=== PATIENT | female | born 1965 | race Caucasian/White ===

== ENCOUNTER 2018-12-02 08:45 | Day surgery (SDC) | payer MEDICARE, OTHER ==
[~2018-12-02] VITALS: Ht 182.9 cm; Wt 119.3 kg
[~2018-12-02 08:45] MED LIST: ACTOS15 MG PO; AMLODIPINE BESY10 MG PO; ARIPIPRAZOLE10 MG PO; BUPROPION XL300 MG PO; CEFDINIR300 MG PO; CLINDAMYCIN HC300 MG PO; DESVENLAFAXINE25 MG PO; GABAPENTIN300 MG PO; HUMALOG100 UNIT/1 SUB-Q; JANUVIA100 MG PO; LAMOTRIGINE100 MG PO; LAMOTRIGINE200 MG PO; LANTUS100 UNITS/ SUB-Q; LATUDA40 MG PO; LISINOPRIL30 MG PO; LUNESTA3 MG PO; LYRICA150 MG PO; METFORMIN HCL1000 MG PO; NAPROXEN500 MG PO; NORCO 5-325 TA1 EACH PO; NORTRIPTYLINE H50 MG PO; NOVOLOG100 UNIT/2 SUB-Q; OMEPRAZOLE20 MG PO; VENLAFAXINE HC150 MG PO; VICTOZA 2-0.6 MG/0.1 SUB-Q; ZOLPIDEM TARTRA10 MG PO; ZYPREXA5 MG PO
--- NOTE | 2018-12-02 14:35 | NUR ---
12/02/18 1435 Sheets,Nemo 1426 PT ARRIVED TO PACU ON 6L VIA MASK, PT NONAROUSABLE TO PAINFUL STIMULI AND ORAL AIRWAY IN PLACE. RESP EVEN AND UNLABORED. 1427 O2 INCREASED TO 10L VIA MASK PER FERMENTATION MANAGER. 1435 CBG 202. PT REMAINS NONAROUSABLE.
--- NOTE | 2018-12-02 15:26 | NUR ---
PT ARRIVES TO DS RM 4 FROM PACU AWAKE AND ALERT, RESP EVEN AND UNLABORED. PT REMAINS ON 2L O2 VIA NC, SATS ABOVE 94% WITH CONT PULSE OXIMETER LEFT IN PLACE. PT DENIES PAIN OR NAUSEA. PT PROVIDED COFFEE PER REQUEST. FAMILY AT BEDSIDE. CALL LIGHT WITHIN REACH.
--- NOTE | 2018-12-02 15:39 | NUR ---
1535: NC REMOVED, PT ENCOURAGED TO CONT TO CDB. PT PROVIDED SECOND CUP OF COFFEE WITH CREAMER AND ICED WATER. PT AGREES TO USE CALL LIGHT WITH ANY NEEDS. SPOUSE CONT AT BEDSIDE.
[2018-12-02] MEDS ORDERED: PERCOCET 5-3251 EACH PO (15:51)
--- NOTE | 2018-12-02 16:16 | NUR ---
PT TOLERATES PO WITH NO C/O NAUSEA. PT STATES "I AM STARTING TO FEEL URGE TO VOID" AND WILL NOTIFY RN WHEN SHE WOULD LIKE TO GET UP AND USE BATHROOM. PT RESTING IN BED WATCHING TV WITH FAMILY AT BEDSIDE.
--- NOTE | 2018-12-02 19:08 | NUR ---
[id number]: PT USES CALL LIGHT TO NOTIFY RN OF URGE TO VOID. PT SITS AT SIDE OF BED PRIOR TO STANDING, DENIES NAUSEA OR DIZZINESS. PT AMBULATES WITH RN ASSIST TO BATHROOM. PT VOIDS APPROXIMATELY 50 MLS BRIGHT RED URINE WITH CLOTS PRESENT. PT DENIES ANY PAIN WITH URINATION BUT IS UPSET WITH SMALL AMOUNT VOIDED. PT BACK TO BED AND BLADDER SCANNED. PT HAS RESIDUAL OF APPROX 833 MLS IN BLADDER. [id number]: DR. MARTÍNEZ NOTIFIED. VERBAL ORDERS RECEIVED TO INSERT HARRIS CATHETER AND REPORT BACK TO MD WITH OUTPUT. THIS RN AND JAMES ALTMAN RN ATTEMPT TO PLACE HARRIS CATH. PT BECOMES NAUSEATED WITH HOB SLIGHTLY LOWERED AND VOMITS APPROX 75 MLS YELLOW VOMITUS. PT PROVIDED WET TOWELS AND NEW GOWN, ROOM CLEANED. PT GIVEN PAIN MEDICATION MD; SEE EMAR. [id number]: RICARDO LITTLE RN AND SYL KWAN RN ATTEMPT TO PLACE SECOND HARRIS CATH ONCE PT IS NO LONGER NAUSEATED. HARRIS INSERTION UNSUCCESSFUL. DR. MARTÍNEZ NOTIFIED AND STATES SHE WILL COME TO DS UNIT TO ASSESS. [id number]: DR. MARTÍNEZ IN DS UNIT AND PLACES 18 ROMANIAN HARRIS CATH WITH ALYX SHANNON RN AND THIS RN ASSIST. PT TOLERATES HARRIS CATH INSERTION WELL. BLADDER IMMEDIATELY EMPTIED OF APPROX [address] MARTÍNEZ GIVES VERBAL ORDERS FOR PT TO KEEP HARRIS CATH UNTIL Sunday12/04/18 AND THEN TO RETURN TO HER CLINIC FOR FOLLOW UP. PT AND SPOUSE PROVIDED HARRIS CATH EDUCATION, ALL QUESTIONS ADDRESSED. PT DRESSES SLEF WITH SPOUSE IN ROOM. 1840: DC INSTRUCTIONS PRESENTED TO PT AND SPOUSE AND PAIN PRESCRIPTION GIVEN TO PT SPOUSE. 1700: PT DC'S FROM DS RM 4 VIA WITH SPOUSE AND ALYX SHANNON RN TO HOME. SPOUSE
--- NOTE | 2018-12-04 14:33 | OR ---
[facility] [address] [place] [id number] Signed DATE OF OPERATION: 12/02/2018 SURGEON: Kimberly Martínez MD PREOPERATIVE DIAGNOSIS: Severe stress urinary incontinence. POSTOPERATIVE DIAGNOSES: 1. Severe stress urinary incontinence. 2. Mild vaginal atrophy. PROCEDURES PERFORMED: 1. Diagnostic cystoscopy. 2. Insertion of an Obtryx transobturator tape (TOT) mid urethral sling. PRIMARY SURGEON: Kimberly Martínez MD. SOFTWARE REVERSE ENGINEER SURGEON: OANH Crocker MD. ANESTHESIA: General. ESTIMATED BLOOD LOSS: 75 mL. COMPLICATIONS: None. SPECIMENS: None. DRAINS: A 16-South African Nguyen catheter, connected to gravity drainage. INDICATIONS FOR PROCEDURE: Ms. Rockwell is a very pleasant 53-year-old female, who presented to my clinic earlier in the year with complaints of severe leakage with coughing, sneezing, and exertional movements. She underwent diagnostic cystoscopy, which revealed a normal bladder with no Electronically Signed By: KIMBERLY MARTÍNEZ MD 12/04/18 1433 PATIENT NAME: CHINO ROCKWELL OPERATIVE REPORT DATE OF : 63 REPORT #: [id number] PHYSICIAN: KIMBERLY MARTÍNEZ MD PCP: TAWANNA FIERRO MD REPORT IS CONFIDENTIAL AND NOT TO BE RELEASED WITHOUT AUTHORIZATION [facility] [address] [place] [id number] Signed evidence of any anatomic abnormality. The patient was also noted to have no significant pelvic organ prolapse on exam at that time. She denied any history of overactive bladder symptoms, nor any issues with recurrent UTIs. The only thing on initial workup that was found was that she does have a relatively large bladder capacity of approximately 650 mL. After a thorough discussion of the risks and benefits of placement of a midurethral sling, the patient elected to pursue insertion of a Obtryx TOT sling for definitive management of her stress urinary incontinence symptoms. I have made it very clear to her at that time of the inherent risk of pain with intercourse as well as reactive overactive bladder symptoms, i.e. urgency and frequency symptoms for long as potentially 10 years beyond placement of the sling. She verbalized understanding of this today and is willing to accept the risk of the procedure. OPERATIVE FINDINGS: 1. Visual inspection of the external genitalia reveals no obvious evidence of pelvic organ prolapse. The labia minora and majora are within normal limits. She has a somewhat short vaginal length, along with the presence of mild vaginal atrophy that is mostly consistent with her age. There are no overt abnormalities associated with her urethra or bladder neck. 2. The TOT sling was passed through the obturator fossa bilaterally, perforating the obturator membrane on both sides. She experienced a mild amount of bleeding during this event. After the tape was placed in the usual fashion, diagnostic cystoscopy was performed, which revealed no evidence of any iatrogenic damage to the bladder or urethra. The bilateral ureteral orifices were noted to be effluxing clear urine on both sides at the end of the procedure. 3. The TOT tape was ultimately tightened with the help of a right angle under the loop of the sling. Ultimately, the sling was in excellent position at the end of tensioning and just prior to closure of the vaginal wall epithelium. DESCRIPTION OF PROCEDURE: After informed consent was obtained, the patient was taken back to the operating room. She was transferred from the [facility] to the operating room table, where general anesthesia was induced. She was placed in the dorsal lithotomy position and genitalia prepped and draped in standard sterile fashion. A 16-South African Nguyen catheter was inserted into the patient's bladder and her bladder was completely drained of urine. The catheter was then placed towards the head of the patient. A Ajit retractor was then placed over the operative area and hooks were placed at the introitus, at the level of the labia for use and retraction of the structures. The patient's inner thighs were marked at the appropriate level just medial to the adductor longus muscle on both sides. Once the catheter was then placed, an Allis clamp was placed approximately 1 cm below the urethral meatus and another Allis was placed at the level of the bladder neck. Approximately, 10 mL of 0.25% Marcaine with epinephrine were then injected into the anterior vaginal wall to assist in hydrodissection of the plane between the urethra and Electronically Signed By: KIMBERLY MARTÍNEZ MD 12/04/18 1433 PATIENT NAME: CHINO ROCKWELL OPERATIVE REPORT DATE OF : 63 REPORT #: [id number] PHYSICIAN: KIMBERLY MARTÍNEZ MD PCP: TAWANNA FIERRO MD REPORT IS CONFIDENTIAL AND NOT TO BE RELEASED WITHOUT AUTHORIZATION [address] [address] Signed the vaginal wall. An approximately 3 cm vertical incision was then made into the anterior vaginal wall at the level of the urethra down to the level just proximal to the bladder neck. This incision was dissected down via Metzenbaum scissors bilaterally to the level of the obturator membrane. Dissection was performed without any difficulty. Once the periurethral space was adequately dissected to the level of the obturator membrane on both sides, two stab incisions were made just medial to the adductor longus muscle, also level with the patient's urethra using an 11 blade. Each trocar was then passed from the outside in first through the incision and then through the obturator fossa, popping through the obturator membrane on both sides. The tip of the trocar was then visualized within the incision on both sides. I took care to avoid buttonholing the vaginal epithelium during this process. The sling was then hooked to the end of each trocar and then pulled again from the inside back out again, leaving the ends of the TOT sling projecting from the bilateral groin incisions. I assured adequate placement of the sling and made sure that it was sitting properly into the urethra. Once the sling was confirmed to be in adequate position, the procedure was paused in order to perform a diagnostic cystourethroscopy. Please see above findings. The catheter was then reinserted and the patient's bladder was drained again. We then focused on positioning/tensioning of the sling. I placed a right angle under the loop of the midportion of sling and tensioned the sling with the right angle in place. The plastic covering the arms of the sling were then removed on both sides, along with the trocars attached to the plastic. We tensioned the sling slightly more than usual given the patient's severity of her incontinence. However, the sling was not placed in such a way as it was causing any indention to the periurethral tissue. Once I believed the sling was in good position, the periurethral area was then irrigated thoroughly and FloSeal was placed into the lateral periurethral space on both sides to assist with hemostasis. The final position of the sling was tension free, as confirmed by my regulatory affairs assistant, Dr. OANH Crocker. The stab incisions were then closed using Dermabond on both sides. The anterior vaginal wall incision was then closed in a continuous running fashion using 3-0 Vicryl. The patient's vagina was then irrigated again and vaginal packing impregnated with AVC cream was then inserted into the vagina. The catheter by this time was back in place and draining clear yellow urine. Of note, repeat cystoscopy was performed at the end of the procedure, which did confirm the presence of adequate efflux of urine from both ureteral orifices. The patient's vaginal area was then cleaned and dried and a Nguyen catheter was left to gravity drainage. The procedure was then terminated. The patient tolerated the procedure well without any complication. She will now be transferred to the postanesthesia care unit in stable condition. NOTE: Dr. OANH Crocker was present throughout the entire procedure and did assist with the boyle component of the surgery, including dissection as well as passage and tensioning of the TOT sling. Electronically Signed By: KIMBERLY MARTÍNEZ MD 12/04/18 1433 PATIENT NAME: CHINO ROCKWELL OPERATIVE REPORT DATE OF : 63 REPORT #: [id number] PHYSICIAN: KIMBERLY MARTÍNEZ MD PCP: TAWANNA FIERRO MD REPORT IS CONFIDENTIAL AND NOT TO BE RELEASED WITHOUT AUTHORIZATION [address] [address] Signed DISPOSITION: I discussed the details of today's procedure with the patient's family and I answered all their questions. I made it clear to them that the goal of the surgery is to improve the severity of her incontinence and that she would likely not be completely 100% dry after this procedure. I explained to her that the more tension placed on a potential sling, the more risks for reactive OAB symptoms and/or urinary retention. I recommended to the patient's family that she avoid any heavy physical activity or heavy exertion including heavy lifting or housework for at least six weeks. She will be sent home today with Percocet 5/325, dispense #30 as needed for pain along with Keflex 500 mg p.o. t.i.d. for a total of 7 days. She will be scheduled return to clinic in 3 days to undergo her first voiding trial. The patient's vaginal packing will be removed prior to discharge today. MD JOLYNN Feldman/LOIS /[id number] Copies: ~ Electronically Signed By: KIMBERLY MARTÍNEZ MD 12/04/18 1433 PATIENT NAME: CHINO ROCKWELL OPERATIVE REPORT DATE OF : 63 REPORT #: [id number] PHYSICIAN: KIMBERLY MARTÍNEZ MD PCP: ATWANNA FIERRO MD REPORT IS CONFIDENTIAL AND NOT TO BE RELEASED WITHOUT AUTHORIZATION
== END 2018-12-02 19:10 | disposition home or self-care (01) ==
LOC: DS 08:45
PROVIDERS: Urology
PROC: 0TSD4ZZ Reposition Urethra, Percutaneous Endoscopic Approach (ICD-10-PCS; principal; 2018-12-02 10:30)
DX: N39.3 Stress incontinence (female) (male) (principal); N95.2 Postmenopausal atrophic vaginitis; E11.42 Type 2 diabetes mellitus with diabetic polyneuropathy; I10 Essential (primary) hypertension; E78.5 Hyperlipidemia, unspecified; K21.9 Gastro-esophageal reflux disease without esophagitis; M25.511 Pain in right shoulder; G89.29 Other chronic pain; F31.81 Bipolar II disorder; E66.9 Obesity, unspecified; F41.9 Anxiety disorder, unspecified; Z88.8 Allergy status to other drugs, medicaments and biological substances; Z68.35 Body mass index [BMI] 35.0-35.9, adult; N36.41 Hypermobility of urethra; Z79.899 Other long term (current) drug therapy; Z79.84 Long term (current) use of oral hypoglycemic drugs; Z87.891 Personal history of nicotine dependence
CPT/HCPCS: 00860; C1771; J0690; J0696; J1100; J1170; J1885; J2370; J2405; J2704; J3010; J7120

== ENCOUNTER 2021-05-17 11:21 | Inpatient (IN) | payer MEDICARE, MEDICAID ==
[~2021-05-17] VITALS: Ht 180.3 cm; Wt 116.0 kg
[~2021-05-17 11:21] MED LIST changes: +LAMICTAL150 MG PO; -LAMOTRIGINE100 MG PO; +PERCOCET 5-3251 EACH PO
--- OUTSIDE RECORDS SUMMARY | 2021-05-17 11:24 | XMS ---
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 [facility] VISIT COUNT (12 MO.) Syd Stoddard TOTAL 1 NOTE: Visits indicate total known visits. ED/UCC VISIT TRACKING (12 MO.) 05/17/2021 11:[address] [facility] [facility] OR TYPE: Emergency COMPLAINT: - CONFUSION, FALLING, WEAKNESS, KIDNEY FUNCTION INPATIENT VISIT TRACKING (12 MO.) No inpatient visits to display in this time frame [email or web address]
[2021-05-17] MEDS ORDERED: NORTRIPTYLINE H75 MG PO (11:53)
[2021-05-17] MEDS ORDERED: LISINOPRIL-HCT1 EACH PO (11:54)
[2021-05-17] MEDS ORDERED: JARDIANCE25 MG PO (11:54)
[2021-05-17] MEDS ORDERED: VRAYLAR6 MG PO (11:55)
[2021-05-17] MEDS ORDERED: BENZTROPINE MESY2 MG PO ×2 (11:56→17:13)
[2021-05-17] MEDS ORDERED: PIOGLITAZONE HC15 MG PO (11:56)
[2021-05-17] MEDS ORDERED: PREGABALIN150 MG PO (11:57)
[2021-05-17] MEDS ORDERED: LAMOTRIGINE150 MG PO (11:57)
[2021-05-17] MEDS ORDERED: METFORMIN HCL500 M1 PO (11:58)
[2021-05-17] MEDS ORDERED: FENOFIBRATE48 MG PO (11:58)
[2021-05-17] MEDS ORDERED: ALPRAZOLAM1 MG PO (11:58)
[2021-05-17] MEDS ORDERED: TOUJEO SOL300 UNIT/1 SUB-Q (11:59)
[2021-05-17] MEDS ORDERED: OZEMPIC1 MG/0.71 SQ (11:59)
[2021-05-17] MEDS ORDERED: NOVOLOG FL100 UNIT/1 SUB-Q (11:59)
[2021-05-17] MEDS ORDERED: QUETIAPINE FUM300 MG PO (11:59)
[2021-05-17] MEDS ORDERED: FOLIC ACID1 MG PO (12:00)
[2021-05-17] MEDS ORDERED: ROPINIROLE HC0.25 MG PO (12:00)
[2021-05-17] MEDS ORDERED: FEROSUL325 MG PO (12:00)
[2021-05-17] MEDS ORDERED: ATORVASTATIN CA80 MG PO (12:01)
--- NOTE | 2021-05-17 17:37 | NUR ---
Patient's medications reconciled using pharmacy records, patient's home medication list, visual inspection of RX vials and family interview. Two med discrepancies to note: she takes lamotrigine 150mg qam and 200mg qhs, she takes pregabalin 300mg qam. Family is unsure of insulin aspart dosing
--- NOTE | 2021-05-17 17:46 | NUR ---
cbg 134
--- NOTE | 2021-05-17 19:53 | NUR ---
RECEIVED REPORT FROM DAY SHIFT RN. PATIENT IS RESTING IN BED WATCHING TV. PATIENT DENIES ANY NEEDS. CALL LIGHT IN REACH.
--- NOTE | 2021-05-17 20:50 | NUR ---
PATIENT ASSESMENT COMPLETED. VITALS TAKEN AND RECORDED. PATIENTS INTAKE AND OUTPUT RECORDED. PATIENT REPORTS 2/10 PAIN AND DENIES THE NEED FOR PAIN MEDICATION AT THIS TIME. PATIENTS BS IS WNL. SCHEDULED MEDICATIONS GIVEN PER ORDER. IV INFUSING PER ORDER. PATIENTS FOOD HEATED UP AND CUT UP FOR PATIENT. PATIENT PROVIDED WITH FRESH ICE WATER. PATIENT REPOSITIONED IN BED. PATIENT DENIES ANY FURTHER NEEDS. CALL LIGHT IN REACH. BED ALARM ON FOR SAFETY.
--- NOTE | 2021-05-17 22:28 | NUR ---
PATIENT IS RESTING IN BED WITH EYES CLOSED, RR 17. CALL LIGHT IN REACH. BED ALARM ON FOR SAFETY. IVINFUSING PER ORDER.
--- NOTE | 2021-05-18 00:19 | NUR ---
PATIENT REPORTS 5/10 PAIN, PRN TYLENOL GIVEN PER ORDER. PATIENT REPOSITIONED IN BED. NO FURTHER NEEDS NOTED. IV INFUSING PER ORDER. BED ALARM ON FOR SAFETY.
--- NOTE | 2021-05-18 02:13 | NUR ---
PATIENTS VITALS TAKEN AND RECORDED. PATIENTS IV INFUSING PER ORDER. PATIENT DENIES ANY NEEDS. CALL LIGHT IN REACH.
--- NOTE | 2021-05-18 04:13 | NUR ---
PATIENT IS RESTING IN BED WITH EYES CLSOED, RR 16. CALL LIGHT IN REACH. BED ALARM ON FOR SAFETY.
--- NOTE | 2021-05-18 06:17 | NUR ---
PATIENT ASSISTED TO THE RESTROOM A 1PA W/FWW. PATIENT WAS ABLE TO VOID. PATIENT IS BACK IN BED RESTING. PATIENTS VITALS TAKEN AND RECORDED. INTKAE AND OUTPUT RECORDED. LAB PRESENT IN THE ROOM. PATIENT PROVIDED WITH FRESH ICE WATER. NO FURTHER NEEDS NOTED. CALL LIGHT IN REACH. BED ALARM ON FOR SAFETY.
--- NOTE | 2021-05-18 07:25 | NUR ---
PT AWAKE, WATCHING TV, NO C/O ORAL PAIN AT THIS TIIME. IVF INFUSING W/O PROBLEMS. BED ALARM ON
--- NOTE | 2021-05-18 09:09 | NUR ---
CBG 143 - REPOSITIONED IN BED. UP TO BR 1PA/FWW, VOIDED, BACK TO BED, TOLERATED WELL. REPOSITIONED IN BED FOR BREAKFAST. COFFEE GIVEN ON REQUEST. COOP WITH ASSESSMENT. TOOK MEDS W/O PROBLEMS. USES CALL LIGHT, BED ALARM ON FOR FALL PRECAUTIONS.
--- NOTE | 2021-05-18 10:02 | NUR ---
PATIENT AWAKE IN BED, VITALS CHARTED. ICE PACK PROVIDED FOR ORAL COMFORT. CALL IGHT IN EASY REACH
--- NOTE | 2021-05-18 10:04 | NUR ---
PATIENT REPORTS NOT BEING ABLE TO HAVE BM, REQUESTED A SUPPOSITORY, NIO ORDER ENTERED.
--- NOTE | 2021-05-18 11:30 | NUR ---
Spoke with pt and she states she is feeling ok. She has very short term memory. Family has been attempting to get pt into a SNF. She asks I call her daughter, Samantha for further information. Pt uses a walker. Mouth is sore as she had all her teeth pulled last week.
--- NOTE | 2021-05-18 12:04 | NUR ---
CBG 164, RECEIVED 3 UNITS HUMALOG SS - C/O ORAL PAIN. REMOVAL OF UPPER L TEETCH SOMETIME LAST WEEK, ICE PACK NOT EFFECTIVE GIVEN EARLIER. ORAGEL APPLIED, PARTIALLY EFFECTIVE. IVF DECREAED TO 65. CM IN ROOM. PT UP IN CHAIR. ALERT AND ORIENTED. DENIES NEED FOR TYLENOL SINCE SHE GOT ORAGEL
--- NOTE | 2021-05-18 13:00 | NUR ---
PATIENT SITTING UP IN CHAIR, VISITOR IN ROOM. VITALS AND I&OS CHARTED. CALL LIGHT IN EASY REACH
--- NOTE | 2021-05-18 14:00 | NUR ---
Spoke with Samantha. 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 Pt has been declining has worsening memory loss over the last 6 months. Pt is unable to care for self. 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 Received call from Orville at [facility] and they will accept this pt on Sunday to their SNF. Dr. Ortez updated.
--- NOTE | 2021-05-18 14:08 | NUR ---
medicated with Tylenol and oral gel to L upper gum line per 7/10 oral pain. more coffee given, visiting with family. chair alarm on
--- NOTE | 2021-05-18 15:37 | NUR ---
Pt worked with PT. back to chair, legs elevted, chair alarm in place. IVF infusing, no c/o oral pain at this time. watching tv.
--- NOTE | 2021-05-18 17:15 | NUR ---
cbg 134, no coverage needed, up to br, voided large amount of urine, 1PA/FWW back to chair, eating dinner
--- NOTE | 2021-05-18 17:33 | NUR ---
rocephin 2gr given as ordered, no c/o adverse reaction. was medicated with Oragel per L upper gum/teeth removal area. Up inc hair, eating.
--- NOTE | 2021-05-18 18:20 | NUR ---
Pt A&Ox4, CM and Dr Ortez in with pt earlier. new order for Rocephin 2GR. Oragel applied three time to L upper gum area/teeth removal area and Tylenol per oral pain, partially effective. Up to chair all this shift. has walked with PT, and to BR several times, voiding QS. eating well, CBG requiring 3 units Humolog for breakfast and lunch, last CBG 134. concerned about home med and hosp med dosages. Has required much emotional support off and on this shift. family visited nad she feels better. talked to CM about Physical Therapy vs SNF/rehab placement. IVF infusing w/o problems. has tolerated fluids well. no bm this shift
--- NOTE | 2021-05-18 19:42 | NUR ---
RECEIVED REPORT FROM DAY SHIFT RN. PATIENT IS RESTING IN BED. NO NEEDS NOTED. CALL LIGHT IN REACH.
--- NOTE | 2021-05-18 21:30 | NUR ---
IN RM WITH RN TO GET VS, PT UP TO THE TOILET SBA WITH WALKER, RN IN TO RESUME CARES AND GET PT BACK TO BED
--- NOTE | 2021-05-18 21:57 | NUR ---
PATIENT ASSISTED TO THE RESTROOM A SBA W/FWW, PATIENT LOLI TO VOID. PATIENT IS BACK IN BED RESTING. IV INFUSING PER ORDER. VITALS TAKEN AND RECORDED. INTAKE AND OUTPUT RECORDED. SCHEDULED MEDICATION GIVEN PER ORDER. PATIENT RATES PAIN AT A 7/10 IN HER MOUTH, PRN TYLENOL GIVEN PER ORDER. PRN ANXIETY MEDICATION GIVEN PER ORDER FOR PATIENT REPORTS OF ANXIOUS. PATIENT PROVIDED WITH FRESH ICE WATER. PATIENT DENIES ANY FURTHER NEEDS. CALL LIGHT IN REACH. BED ALARM ON FOR SAFETY.
--- NOTE | 2021-05-18 22:39 | NUR ---
PATIENT IS RESTING IN BED WITH EYES CLSOED, RR 17. CALL LIGHT IN REACH. BED ALARM ON FOR SAFETY. CALL LIGHT IN REACH.
--- NOTE | 2021-05-19 00:22 | NUR ---
PATIENT ASSISTED TO THE RESTROOM A SBA W/FWW. PATIENT ABLE TO VOID. PATIENT IS BACK IN BED RESTING. IV INFUSING PER ORDER. PATIENT RATES PAIN AT A 3/10 AND DENIES THE NEED FOR INTERVENTION AT THIS TIME. PATIENT DENIES ANY FURTHER NEEDS. PATIENT RORIENTED SHE CONFUSED THIS RN WITH THE PHYSICAL THERAPIST AND THOUGHT IT WAS NOON. PATIENTS CALL LIGHT IN REACH. BED ALARM ON FOR SAFETY.
--- NOTE | 2021-05-19 02:28 | NUR ---
PATIENT IS RESTING IN BED WITH EYES CLOSED, RR 18. CALL LIGHT IN REACH. BED ALARM ON FOR SAFETY.
--- NOTE | 2021-05-19 04:46 | NUR ---
PATIENT IS RESTING IN BED WITH EYES CLSOED, RR 16. CALL LIGHT IN REACH.
--- NOTE | 2021-05-19 06:02 | NUR ---
PATIENT ASSISTED TO THE RECLINER. PATIENTS BEDDING CHANGED. VITALS TAKEN AND RECORDED. INTAKE AND OUTPUT RECORDED. PATIENTS SCHEDULED MEDICATIONS GIVEN PER ORDER. PATIENT IS RESTING IN RECLINER. WARM BLANKET PROVIDED. IV INFUSING PER ORDER. CALL LIGHT AND BELONGINGS ARE WITHIN REACH.
--- NOTE | 2021-05-19 08:45 | NUR ---
REPORT RECEIVED FROM NIGHT RN AND PT. CARE RESUMED. PT. IS ALERT AND ORIENTED TO ALL. IV WNL AND FLUSHES WELL. PT. AMBULATED WITH SBA FROM THE BED TO THE CHAIR. SHE C/O GUM PAIN AND ADMIN. ORAJEL. DISCUSSED POC, SAFETY AND MEDS. LEFT RESTING WITH CALL LIGHT IN REACH.
--- NOTE | 2021-05-19 10:20 | NUR ---
Spoke with Alicia and updated she has been accepted by [facility]. She states she just spoke with her daughter, Samantha. She states she is not going to a SNF. States she will discuss with her daughter when she gets here today.
--- NOTE | 2021-05-19 18:12 | NUR ---
PT. REQUESTED TO RE-TIME REQUIP FROM 1800 TO 1999 TO ASSIST WITH SLEEPING. PHARMACY CALLED AND RETIMED MED.
--- NOTE | 2021-05-19 20:01 | NUR ---
IN ROOM TO ASSIST PT FROM CHAIR BACK TO BED AND GET HER A NEW GOWN. CLEANED UP PT'S TRAY. SHE DENIES FURTHER NEEDS. CALL LIGHT IS CLOSE.
--- NOTE | 2021-05-20 07:31 | NUR ---
REPORT RECEIVED FROM NIGHT RN AND PT. CARE RESUMED.
--- NOTE | 2021-05-20 10:28 | NUR ---
Marv walked to bathroom then sat in chair for brekfast
--- NOTE | 2021-05-20 11:25 | NUR ---
PT. IS ALERT AND ORIENTED TO ALL, BUT FORGETFUL IN CONVERSATION. VITALS STABLE. IV SITE WNL AND FLUSHES. ASSESSMENT COMPLETED AND MEDS. ADMINISTERED. DISCUSSED POC, SAFETY AND MEDS. LEFT RESTING WITH CALL LIGHT IN REACH.
[2021-05-20] MEDS ORDERED: CEFPODOXIME PR200 MG PO (11:49)
[2021-05-20] MEDS ORDERED: ALPRAZOLAM1 MG PO (11:52)
[2021-05-20] MEDS ORDERED: ACETAMINOPHEN500 MG PO (11:53)
[2021-05-20] MEDS ORDERED: ORAL ANALGESIC9 GM MM (11:53)
[2021-05-20] MEDS ORDERED: OMEPRAZOLE20 MG PO (11:54)
[2021-05-20] MEDS ORDERED: NOVOLOG FL100 UNIT/1 SUB-Q (11:55)
[2021-05-20] MEDS ORDERED: TOUJEO SOL300 UNIT/1 SUB-Q (11:56)
[2021-05-20] MEDS ORDERED: ONDANSETRON ODT4 MG SL (11:57)
[2021-05-20] MEDS ORDERED: MAG-AL LIQUID30 ML PO (11:58)
[2021-05-20] MEDS ORDERED: PREGABALIN150 MG PO (13:30)
--- NOTE | 2021-05-20 14:15 | NUR ---
IV REMOVED BY CHANGE LEAD WITH CATH INTACT. VITALS STABLE AND PT. DENIES PAIN. PT. LEFT WITH ALL BELONGINGS AND DISCHARGE PACKET VIA WHEELCHAIR WITH CHANGE LEAD AND DAUGTHER.
== END 2021-05-20 14:21 | DRG 683 ==
LOC: ED 11:21 → MS 16:26
PROVIDERS: ADMIT Internal Medicine; ATTEND Internal Medicine
DX: N17.9 Acute kidney failure, unspecified (principal); N30.00 Acute cystitis without hematuria; B96.20 Unspecified Escherichia coli [E. coli] as the cause of diseases classified elsewhere; E78.5 Hyperlipidemia, unspecified; F31.9 Bipolar disorder, unspecified; E11.42 Type 2 diabetes mellitus with diabetic polyneuropathy; Z20.822 Contact with and (suspected) exposure to COVID-19; R29.6 Repeated falls; G25.81 Restless legs syndrome; Z88.7 Allergy status to serum and vaccine; K21.9 Gastro-esophageal reflux disease without esophagitis; Z79.899 Other long term (current) drug therapy; Z79.4 Long term (current) use of insulin; F03.90 Unspecified dementia, unspecified severity, without behavioral disturbance, psychotic disturbance, mood disturbance, and anxiety; Z87.891 Personal history of nicotine dependence
CPT/HCPCS: 36415; 80048; 81001; 82565; 82570; 83735; 84300; 84520; 84550; 85025; 87088; 87186; 96365; 96376; 97162; 97165; 97530; 99284-25; A9270; J0696; J1650; J1815; J7030; J7121; U0003